=== PATIENT | female | born 1950 | race Caucasian/White ===

== ENCOUNTER 2023-01-24 13:58 | Inpatient (IN) ==
--- NOTE | 2023-01-24 15:39 | Electrocardiogram Report ---
Test Reason : Blood Pressure : / mmHG Vent. Rate : 080 BPM Atrial Rate : 080 BPM P-R Int : 178 ms QRS Dur : 072 ms QT Int : 374 ms P-R-T Axes : 057 006 018 degrees QTc Int : 431 ms Normal sinus rhythm Normal ECG No previous ECGs available Confirmed by Anastacio Lorenz ([id number]) on 01/24/2023 3:39:16 PM Referred By: Confirmed By:Anastacio Lorenz
--- NOTE | 2023-01-24 15:45 | XRay Report ---
XR chest 1V not portable HISTORY: 72 years-old Female Chest pain, nonspecific acute chest pain COMPARISON: None TECHNIQUE: PA view of the chest FINDINGS: Cardiomediastinal and hilar silhouettes are within normal limits. No pneumothorax, pleural effusion, airspace consolidation or pulmonary edema. Bones of the chest appear grossly intact. IMPRESSION: No acute process. ACT 112: Negative or not required by law. The above report was generated using voice recognition software. It may contain grammatical, syntax o r spelling errors. Electronically signed by: Titi Chowdhury M.D. 01/24/2023 3:44 PM
[2023-01-24 16:04] LABS: Basophils # (auto) 0.04 K/uL (0-0.2); Basophils % (auto) 0.7 %; Eosinophils # (auto) 0.14 K/uL (0-0.50); Eosinophils % (auto) 2.4 %; Hematocrit (blood only) 41.6 % (37.0-47.0); Hemoglobin 14.3 g/dl (12.0-16.0); Immature Granulocytes # (auto) 0.01 K/uL (0.01-0.20); Immature Granulocytes % (auto) 0.2 %; Lymphocytes # (auto) 1.62 K/uL (1.2-3.4); Lymphocytes % (auto) 27.6 %; Mean Corpuscular Hemoglobin 29.2 pg (25.0-34.0); Mean Corpuscular Hgb Conc 34.4 g/dL (32.0-36.0); Mean Corpuscular Volume 85.1 fL (80.0-100.0); Mean Platelet Volume 11.4 fL (9.4-12.4); Monocytes # (auto) 0.46 K/uL (0.11-0.59); Monocytes % (auto) 7.8 %; Neutrophils # (auto) 3.61 K/uL (1.40-6.50); Neutrophils % (auto) 61.3 %; Platelet Count 192 K/uL (130-400); RDW Coefficient of Variation 13.3 % (11.5-14.5); RDW Standard Deviation 41.1 fL (36.4-46.3); Red Blood Count 4.89 M/uL (4.20-5.40); White Blood Count 5.88 K/ul (4.8-10.8)
[2023-01-24 16:30] LABS: Albumin Globulin Ratio 1.5 (0.9-2); Albumin Level 4.4 gm/dl (3.4-5.0); BUN Creatinine Ratio 14.9 (10-20); Bilirubin,Total 0.5 mg/dl (0.2-1.0); Calcium 9.4 mg/dl (8.6-10.3); Est GFR (African American) 76.6 ml/min; Est GFR (Non-African American) 66.1 ml/min; Globulin 2.9 gm/dl (2.5-4.0); INR 0.9 (0.9-1.1); Partial Thromboplastin Time 28.5 Seconds (21.0-31.0); Potassium 3.8 mmol/L (3.5-5.1); Prothrombin Time 10.3 Seconds (9.0-12.0); Total Protein 7.3 gm/dl (6.0-8.3); Troponin I High Sensitivity 76.5 pg/ml (0-14)
--- NOTE | 2023-01-24 17:13 | History & Physical Report ---
Date of Service January 24, 2023 Assessment & Plan (1) Chest pain: Plan: This is a 72 y/o female who presents to the ED with progressive episodes of exertional chest pressure and dyspnea over the last two weeks. She has a history of dyslipidemia but has been unable to tolerate a statin. She is a former smoker and has a family history of heart disease. She denies prior history of HTN. Blood sugar in the ED was >300 - denies prior history of diabetes but also has a family history of DM. Clinical picture concerning for unstable angina vs. NSTEMI. Troponin in the ED was elevated. EKG without clear ST segment elevation but questionable ST-T changes - no prior EKG to compare to. Currently, chest pain has essentially resolved. - Admit to PCU - Trend troponin Q6hrs x 2 more draws - Start heparin gtt, aspirin, beta-dave for presumed unstable angina vs. N STEMI - NPO after midnight - Repeat EKG in AM and with any recurrent chest pain - Check ECHO - Lipid panel and A1c in AM - Consult cardiology (2) Family history of cardiovascular disease: (3) Elevated blood sugar: Plan: Pt denies prior diagnosis of diabetes but blood sugar in ED >300 - concerning for undiagnosed DM. Will check A1c and address from there. (4) Dyslipidemia: Plan: Lipid panel in AM - pt has been statin intolerant previously due to muscle aches Plan Pt seen and reviewed with collaborating physician, Dr. Malagon. Plan of care discussed and as outlined above Code Status: Full Code DVT Prophylaxis: Heparin gtt Edilberto Holman PA-C History of Present Illness Chief Complaint: Chest pain Primary Care Provider: Micah Tellez M.D. This is a 72 y/o female with a history of endometriosis s/p hysterectomy, elevated cholesterol but not on statin due to side effects, and frequent UTIs who presented to the ED with worsening chest discomfort. Pt reports 1-2 weeks of intermittent chest discomfort and heaviness, initially with exertion but now happening at rest. Pt reports that since she had COVID a year ago, she has had some issues with dyspnea on exertion (significant exertion like walking up the hill with something on [place]) but this has worsened over the last few weeks. About two weeks ago, she started to notice chest heaviness with these episodes. Sometimes they resolve quickly with rest while other times it takes several kendra joselito to resolve. Chest discomfort is across the entire mid-chest - describes as "like a concrete block is sitting on the area." Today, she was at work early and had an episode of discomfort without specific inciting event. The discomfort resolved with rest and deep breathing after about 20 minutes. After lunch, she developed recurrent discomfort but this time it did not resolve with usual measures or in usual time. After about an hour, she decided to come to the ED for evaluation. Pain is essentially resolved at present. She denies prior cardiac work-up. No known history of HTN. She was tried on propranolol for tremor but could not tolerate. She is supposed to be on rosuvastatin for cholesterol but has not been taking rosuvastatin b/c of side effects - bothers her legs. Has had high blood sugars in the past but does not recall being told that she was diabetic. Mother had a heart attack in her 70s but lived to her 90s. Allergies Allergy/AdvReac Type Severity Reaction Status Date / Time aspirin AdvReac Nausea Verified 01/24/23 16:38 Home Medications Medication Instructions Recorded Confirmed Type calcium carbonate 600 mg-vitamin 1 tab PO 4XWK 01/24/23 01/24/23 History D3 10 mcg (400 unit) tablet (Calcium 600 + D(3)) cranberry concentrate-ascorbic 1 cap PO DAILY 01/24/23 01/24/23 History acid 140 mg-100 mg capsule (Cranberry Urinary Comfort) magnesium oxide 400 mg PO DAILY 01/24/23 01/24/23 History turmeric root extract 500 mg tablet 500 mg PO DAILY 01/24/23 01/24/23 History Past Med/Surg History Medical History Broken arm Broken foot Endometriosis History of COVID-19 Tinnitus Surgical History History of hysterectomy 1986 for endometriosis History of tonsillectomy Family History Grandmother Diabetes Father Cancer smoker Brother Cancer agent orange exposure - unsure what type of cancer Brother Cancer smoker Mother Heart disease Social History Smoking Status: Former smoker Cigarettes Per Day: 1/2-1 PPD; Smoking End Date: quit 12-13 yrs ago; Hx Alcohol Use: Yes (occasional) Hx Substance Use: No Current Living Situation: Spouse Feels Safe at Home: Yes Sunscreen Use: Yes Review of Systems Review of Systems: All systems reviewed & are unremarkable except as noted in HPI & below Constitutional: no fever, no chills and no weight loss Eyes: no diplopia and no worsening vision Ear, Nose, Mouth, Throat: no nasal congestion, no nasal discharge and no sore throat Respiratory: no cough and no wheezing Cardiovascular: no palpitations, no syncope and no edema Gastrointestinal: no abdominal pain, no nausea, no vomiting, no diarrhea/loose stools and no blood in stools Genitourinary: no dysuria and no hematuria Musculoskeletal: no back pain and no neck pain Integumentary: no rash and no yellowing of the skin Neurologic: no generalized weakness, no dizziness and no headache(s) Psychiatric: no depression Physical Exam Constitutional: well developed and well nourished; no acute distress Eyes: + anicteric sclerae ENMT: external ear and nose normal, oropharynx normal Neck: trachea midline Respiratory: no respiratory distress and no labored breathing Auscultation: lungs clear to auscultation bilaterally; no rales, no rhonchi and no wheezes Cardiovascular: Rate/Rhythm: regular rate and regular rhythm Vessels: dorsalis pedis pulses present and radial pulses present; no carotid bruit Extremities: no pedal edema Gastrointestinal (Abdomen): Inspection/Auscultation: normal bowel sounds; abdomen not distended Percussion/Palpation: abdomen soft; abdomen nontender Musculoskeletal: Head/Neck/Chest: normocephalic, head atraumatic and neck supple Skin: no jaundice Neurologic: moves all extremities; no focal motor deficits and not confused Psychiatric: A+Ox3, euthymic affect Results & Data Results & Data Vital Signs (Past 12 Hours) Vital Signs Temp Pulse Resp BP Pulse Ox O2 Del Method O2 Flow Rate 01/24/23 16:30 66 17 94 Room Air 01/24/23 16:30 149/78 H 01/24/23 16:00 67 18 01/24/23 16:00 141/82 H 01/24/23 15:30 65 19 95 01/24/23 15:30 120/75 01/24/23 15:29 71 19 96 01/24/23 15:30 71 01/24/23 15:24 96 Room Air 01/24/23 15:24 96 Room Air 0 01/24/23 14:01 37.2 C 81 17 160/83 H 96 Room Air Laboratory Results Laboratory Results - last 24 hr 01/24/23 01/24/23 01/24/23 15:42 15:42 15:42 WBC 5.88 RBC 4.89 Hgb 14.3 Hct 41.6 MCV 85.1 MCH 29.2 MCHC 34.4 RDW Std Deviation 41.1 RDW Coeff of Huma 13.3 Plt Count 192 MPV 11.4 Immature Gran % (Auto) 0.2 Neut % (Auto) 61.3 Lymph % (Auto) 27.6 [place] % (Auto) 7.8 Eos % (Auto) 2.4 Baso % (Auto) 0.7 Neut # (Auto) 3.61 Lymph # (Auto) 1.62 [place] # (Auto) 0.46 Eos # (Auto) 0.14 Baso # (Auto) 0.04 Immature Gran # (Auto) 0.01 PT 10.3 INR 0.9 APTT 28.5 PTT Ratio 1.0 Sodium 134 L Potassium 3.8 Chloride 103 Carbon Dioxide 23 Anion Gap 8 BUN 13 Creatinine 0.87 Est Cr Clr Drug Dosing 61.0 Est GFR ( Amer) 76.6 Est GFR (Non-Af Amer) 66.1 BUN/Creatinine Ratio 14.9 Glucose 305 H* Calcium 9.4 Total Bilirubin 0.5 AST 40 H ALT 30 Alkaline Phosphatase 92 Troponin I High Sens 76.5 H* Total Protein 7.3 Albumin 4.4 Globulin 2.9 Albumin/Globulin Ratio 1.5 Diagnostic Findings Chest X-Ray 01/24/23 14:04 XR chest 1V not portable HISTORY: 72 years-old Female Chest pain, nonspecific acute chest pain COMPARISON: None TECHNIQUE: PA view of the chest FINDINGS: Cardiomediastinal and hilar silhouettes are within normal limits. No pneumothorax, pleural effusion, airspace consolidation or pulmonary edema. Bones of the chest appear grossly intact. IMPRESSION: No acute process. Supervising Physician Co-Signing Physician Notes Patient was seen and examined independently at bedside. Chart reviewed. Case discussed with Janay Holman PA-C and agree with the documentation above. In summary, this is a 72-year-old female who presents with chest pressure with exertion and is being admitted due to concerns for unstable angina vs NSTEMI. On exam, she is awake, alert, oriented, lying comfortably, chest clear, heart sounds normal, abdomen benign, neurologically intact, no leg edema. Patient high-sensitivity troponin elevated at 76, EKG with some ST-T wave changes but no prior EKG to compare. She denies any chest pain after presented to ED. However given her concerning history as detailed above, her family history, elevated Trop and EKG changes, agree with admission to PCU with aspirin, beta-blockers, heparin drip while monitoring serial troponin, telemetry, repeat EKG in a.m., echo cardiogram and cardio consultation. She is intolerant to statin. She will likely will need cardiac cath but will defer to cardiology. We will keep n.p.o. after midnight. Agree with checking A1c given elevated blood sugar of more than 300 in the ED. SSI prn. Rest as per the note above.
[2023-01-24] MEDS ORDERED: ASPIRIN CHEW 324 MG PO STA (19:19)
[2023-01-24] MEDS ORDERED: Heparin IV Adult Wt-Based Standard *NO* Bolus Protocol IV SCH (19:26)
[2023-01-24] MEDS ORDERED: METOPROLOL SUCC 25MG EXT REL TAB PO SCH (19:30)
[2023-01-24] MEDS ORDERED: HEPARIN SODIUM/DEXTROSE 25,000 UNITS/500 ML BAG IV SCH (20:00)
[2023-01-24] MEDS ORDERED: METOPROLOL TARTRATE 25 MG TAB PO STA (21:05)
[2023-01-24] MEDS ORDERED: ACETAMINOPHEN 325 MG TAB PO PRN (22:12)
[2023-01-24] MEDS ORDERED: NITROGLYCERIN SL 0.4 MG/TAB TAB SL PRN (22:12)
--- NOTE | 2023-01-24 23:20 | Emergency Department Note ---
History of Present Illness General Chief Complaint: Chest Pain Stated Complaint: CHEST PAIN, SOB, Time Seen by Provider: 01/24/23 16:05 History of Present Illness Provider Complaint: chest pain Onset (ago): week(s) Onset (Weeks): 2 Duration: intermittent and now resolved Onset: during rest Pain Location: substernal Pain Radiation: none Severity: moderate Quality: + tightness and + heaviness Relieved By: + nothing Exacerbated By: + other (stress) Context: no recent illness, no recent surgery, no recent immobilization, no recent travel, no trauma/injury, no new medications or no history of DVT/PE Associated symptoms: + dyspnea; no nausea, no vomiting, no syncope, no palpitations, no fever, no cough or no leg swelling Home Medications Medication Instructions Recorded Confirmed Type calcium carbonate 600 mg-vitamin 1 tab PO 4XWK 01/24/23 01/24/23 History D3 10 mcg (400 unit) tablet (Calcium 600 + D(3)) cranberry concentrate-ascorbic 1 cap PO DAILY 01/24/23 01/24/23 History acid 140 mg-100 mg capsule (Cranberry Urinary Comfort) magnesium oxide 400 mg PO DAILY 01/24/23 01/24/23 History turmeric root extract 500 mg tablet 500 mg PO DAILY 01/24/23 01/24/23 History Allergies Allergy/AdvReac Type Severity Reaction Status Date / Time aspirin AdvReac Nausea Verified 01/24/23 16:38 Past Med/Surg History Medical History Broken arm Broken foot Endometriosis History of COVID-19 Tinnitus Surgical History History of hysterectomy 1986 for endometriosis History of tonsillectomy Family History Grandmother Diabetes Father Cancer smoker Brother Cancer agent orange exposure - unsure what type of cancer Brother Cancer smoker Mother Heart disease Social History Smoking Status: Former smoker Cigarettes Per Day: 1/2-1 PPD; Smoking End Date: quit 12-13 yrs ago; Hx Alcohol Use: Yes (occasional) Hx Substance Use: No Current Living Situation: Spouse Feels Safe at Home: Yes Sunscreen Use: Yes Physical Exam Vital Signs Vital Signs - 24 hr 01/24/23 14:01 01/24/23 15:24 01/24/23 15:24 Temperature 37.2 C Temperature Source Temporal Artery Scan Pulse Rate 81 Pulse Rate from SpO2 Sensor Respiratory Rate 17 Respiratory Effort / Characteristics Non-Labored Spontaneous Respiratory Depth Normal Respiratory Pattern Regular Blood Pressure 160/83 H Blood Pressure Mean 108 Pulse Oximetry 96 96 96 Oxygen Delivery Method Room Air Room Air Room Air Oxygen Flow Rate 0 Sepsis Recent Fever Within 48 Hours No Sepsis New/Unexplained Change in Mental Status N/A Sepsis Action Taken by Nursing No Action Required Oxygen Flow Rate - Titration 0 01/24/23 15:30 01/24/23 15:29 01/24/23 15:30 Temperature Temperature Source Pulse Rate 71 71 Pulse Rate from SpO2 Sensor 70 Respiratory Rate 19 Respiratory Effort / Characteristics Respiratory Depth Respiratory Pattern Blood Pressure 120/75 Blood Pressure Mean 89 Pulse Oximetry 96 Oxygen Delivery Method Oxygen Flow Rate Sepsis Recent Fever Within 48 Hours Sepsis New/Unexplained Change in Mental Status Sepsis Action Taken by Nursing Oxygen Flow Rate - Titration 01/24/23 15:30 01/24/23 16:00 01/24/23 16:00 Temperature Temperature Source Pulse Rate 65 67 Pulse Rate from SpO2 Sensor 64 65 Respiratory Rate 19 18 Respiratory Effort / Characteristics Respiratory Depth Respiratory Pattern Blood Pressure 141/82 H Blood Pressure Mean 98 Pulse Oximetry 95 Oxygen Delivery Method Oxygen Flow Rate Sepsis Recent Fever Within 48 Hours Sepsis New/Unexplained Change in Mental Status Sepsis Action Taken by Nursing Oxygen Flow Rate - Titration 01/24/23 16:30 01/24/23 16:30 01/24/23 17:00 Temperature Temperature Source Pulse Rate 66 Pulse Rate from SpO2 Sensor 66 Respiratory Rate 17 Respiratory Effort / Characteristics Respiratory Depth Respiratory Pattern Blood Pressure 149/78 H 164/86 H Blood Pressure Mean 109 120 Pulse Oximetry 94 Oxygen Delivery Method Room Air Oxygen Flow Rate Sepsis Recent Fever Within 48 Hours Sepsis New/Unexplained Change in Mental Status Sepsis Action Taken by Nursing Oxygen Flow Rate - Titration 01/24/23 17:00 Temperature Temperature Source Pulse Rate 67 Pulse Rate from SpO2 Sensor 65 Respiratory Rate 15 Respiratory Effort / Characteristics Respiratory Depth Respiratory Pattern Blood Pressure Blood Pressure Mean Pulse Oximetry 98 Oxygen Delivery Method Oxygen Flow Rate Sepsis Recent Fever Within 48 Hours Sepsis New/Unexplained Change in Mental Status Sepsis Action Taken by Nursing Oxygen Flow Rate - Titration Physical Exam GENERAL: oriented to person, place, and time. appears well-developed and well- nourished. HENT: Exam performed. - Head: Normocephalic and atraumatic. EYES: Conjunctivae and EOM are normal. Right eye exhibits no discharge. Left eye exhibits no discharge. No scleral icterus. NECK: Normal range of motion. Neck supple. No JVD present. CV: Normal rate, regular rhythm, normal heart sounds and intact distal pulses. There is no peripheral edema. Palpable radial pulses bue. PULM/CHEST: Effort normal and breath sounds normal. No respiratory distress. No stridor. no wheezes. no rales. ABD: The abdomen is soft. There is no tenderness. NEURO: Motor and sensation grossly intact. SKIN: Skin is warm and dry. He is not diaphoretic. PSYCH: normal mood and affect. Behavior is normal. Judgment and thought content normal. Course Course 1605: The patient was evaluated in room B4. A complete history and physical exam was performed Administered Medications Heparin Sodium/Dextrose (Heparin Sodium/Dextrose) 25,000 units in 500 mls @ 24 mls/hr IV .[id number] [facility]; Protocol Stop: 02/23/23 19:59 Last Admin: 01/24/23 20:29 Dose: 1,200 units/hr, 24 mls/hr Documented By: DEBBIE Co-signed By: QGV Discontinued Medications Aspirin (Aspirin Chew 324 Mg) 324 mg PO NOW STA Stop: 01/24/23 19:20 Last Admin: 01/24/23 20:29 Dose: Not Given Documented By: DEBBIE Metoprolol Succinate (Metoprolol Succ 25mg Ext Rel Tab) 25 mg PO QAM [facility] Stop: 02/23/23 19:29 Last Admin: 01/24/23 21:09 Dose: Not Given Documented By: TIFFANY Metoprolol Tartrate (Metoprolol Tartrate 25 Mg Tab) 25 mg PO ONE STA Stop: 01/24/23 21:06 Last Admin: 01/24/23 22:17 Dose: Not Given Documented By: TIFFANY Medical Decision Making Laboratory Data Attestation: I reviewed the patient's lab results. 01/24/23 15:42 01/24/23 15:42 Labs: Lab Results 01/24/23 01/24/23 01/24/23 Range/Units 15:42 15:42 15:42 WBC 5.88 (4.8-10.8) K/ul RBC 4.89 (4.20-5.40) M/uL Hgb 14.3 (12.0-16.0) g/dl Hct 41.6 (37.0-47.0) % MCV 85.1 (80.0-100.0) fL MCH 29.2 (25.0-34.0) pg MCHC 34.4 (32.0-36.0) g/dL RDW Std Deviation 41.1 (36.4-46.3) fL RDW Coeff of Huma 13.3 (11.5-14.5) % Plt Count 192 (130-400) K/uL MPV 11.4 (9.4-12.4) fL Immature Gran % (Auto) 0.2 % Neut % (Auto) 61.3 % Lymph % (Auto) 27.6 % [place] % (Auto) 7.8 % Eos % (Auto) 2.4 % Baso % (Auto) 0.7 % Neut # (Auto) 3.61 (1.40-6.50) K/uL Lymph # (Auto) 1.62 (1.2-3.4) K/uL [place] # (Auto) 0.46 (0.11-0.59) K/uL Eos # (Auto) 0.14 (0-0.50) K/uL Baso # (Auto) 0.04 (0-0.2) K/uL Immature Gran # (Auto) 0.01 (0.01-0.20) K/uL PT 10.3 (9.0-12.0) Seconds INR 0.9 (0.9-1.1) APTT 28.5 (21.0-31.0) Seconds PTT Ratio 1.0 Sodium 134 L (136-145) mmol/L Potassium 3.8 (3.5-5.1) mmol/L Chloride 103 (98-107) mmol/L Carbon Dioxide 23 (21-32) mmol/L Anion Gap 8 (3-11) BUN 13 (6-23) mg/dl Creatinine 0.87 (0.6-1.2) mg/dl Est Cr Clr Drug Dosing 61.0 ml/min Est GFR ( Amer) 76.6 ml/min Est GFR (Non-Af Amer) 66.1 ml/min BUN/Creatinine Ratio 14.9 (10-20) Glucose 305 H* (70-99(Fasting)) mg/dl Calcium 9.4 (8.6-10.3) mg/dl Total Bilirubin 0.5 (0.2-1.0) mg/dl AST 40 H (13-39) U/L ALT 30 (7-52) U/L Alkaline Phosphatase 92 (34-104) U/L Troponin I High Sens 76.5 H* (0-14) pg/ml Total Protein 7.3 (6.0-8.3) gm/dl Albumin 4.4 (3.4-5.0) gm/dl Globulin 2.9 (2.5-4.0) gm/dl Albumin/Globulin Ratio 1.5 (0.9-2) Imaging Data Chest x-ray: Attestation: I personally reviewed and interpreted this imaging study as follows: My impression: Chest x-ray negative. Airway clear. No pneumothorax. No consolidation. No cardiomegaly or cephalization.. No free air under the diaphragm. No fractures of the skeletal structures. Radiologist's impression: Chest X-Ray 01/24/23 14:04 XR chest 1V not portable HISTORY: 72 years-old Female Chest pain, nonspecific acute chest pain COMPARISON: None TECHNIQUE: PA view of the chest FINDINGS: Cardiomediastinal and hilar silhouettes are within normal limits. No pneumothorax, pleural effusion, airspace consolidation or pulmonary edema. Bones of the chest appear grossly intact. IMPRESSION: No acute process. ACT 112: Negative or not required by law. The above report was generated using voice recognition software. It may contain grammatical, syntax or spelling errors. Electronically signed by: Titi Chowdhury M.D. 01/24/2023 3:44 PM ECG Data Attestation: I personally reviewed and interpreted this ECG as follows: Indication: chest pain Rate (beats per minute): 80 Rhythm: normal sinus Findings: no ST depression, no ST elevation or no prolonged QT MDM Narrative Cardiac monitoring: An order was placed for continuous cardiac monitoring. The monitor shows a rate of 80 with sinus rhythm interpreted by me Patient was seen during a time of extreme volume and extreme acuity in the emergency department. Nursing triage protocols were initiated and labs were drawn by protocol in the triage area. Patient's high-sensitivity troponin is elevated. Patient reporting no chest pain in the emergency department. [facility] out ACS. Impression & Plan Chest pain, Elevated troponin Discharge Plan Visit Data Chief Complaint: Chest Pain Stated Complaint: CHEST PAIN, SOB, ED Provider: Joao Tyler Discharge Problem: Chest pain, Elevated troponin Patient Disposition: Admitted As Inpatient Discharge Instructions Interventions: ED Discharge Assessment Last Done: 01/24/23 22:12
[2023-01-24] MEDS: METOPROLOL TARTRATE 25 MG TAB PO SCH (23:36)
[2023-01-25 02:38] LABS: Basophils # (auto) 0.05 K/uL (0-0.2); Basophils % (auto) 0.7 %; Eosinophils # (auto) 0.17 K/uL (0-0.50); Eosinophils % (auto) 2.3 %; Hematocrit (blood only) 41.4 % (37.0-47.0); Hemoglobin 14.1 g/dl (12.0-16.0); Immature Granulocytes # (auto) 0.03 K/uL (0.01-0.20); Immature Granulocytes % (auto) 0.4 %; Lymphocytes # (auto) 2.07 K/uL (1.2-3.4); Lymphocytes % (auto) 27.9 %; Mean Corpuscular Hemoglobin 29.1 pg (25.0-34.0); Mean Corpuscular Hgb Conc 34.1 g/dL (32.0-36.0); Mean Corpuscular Volume 85.4 fL (80.0-100.0); Mean Platelet Volume 11.1 fL (9.4-12.4); Monocytes # (auto) 0.51 K/uL (0.11-0.59); Monocytes % (auto) 6.9 %; Neutrophils # (auto) 4.58 K/uL (1.40-6.50); Neutrophils % (auto) 61.8 %; Platelet Count 184 K/uL (130-400); RDW Coefficient of Variation 13.3 % (11.5-14.5); RDW Standard Deviation 41.6 fL (36.4-46.3); Red Blood Count 4.85 M/uL (4.20-5.40); White Blood Count 7.41 K/ul (4.8-10.8)
[2023-01-25 02:55] LABS: Albumin Globulin Ratio 1.5 (0.9-2); Albumin Level 4.1 gm/dl (3.4-5.0); BUN Creatinine Ratio 12.6 (10-20); Bilirubin,Total 0.7 mg/dl (0.2-1.0); Chol HDL Ratio 5.4 (0-5); Est GFR (African American) 76.6 ml/min; Est GFR (Non-African American) 66.1 ml/min; Globulin 2.7 gm/dl (2.5-4.0); Potassium 3.7 mmol/L (3.5-5.1); Total Protein 6.8 gm/dl (6.0-8.3)
[2023-01-25 03:29] LABS: Partial Thromboplastin Ratio 1.9
[2023-01-25 03:30] LABS: Partial Thromboplastin Time 52.2 Seconds (21.0-31.0)
[2023-01-25 07:59] LABS: Estimated Average Glucose 226 mg/dl; Hemoglobin A1C 9.5 % (4.5-5.6)
--- NOTE | 2023-01-25 08:48 | Electrocardiogram Report ---
Test Reason : Blood Pressure : / mmHG Vent. Rate : 064 BPM Atrial Rate : 064 BPM P-R Int : 198 ms QRS Dur : 078 ms QT Int : 444 ms P-R-T Axes : 070 013 003 degrees QTc Int : 458 ms Normal sinus rhythm Low voltage QRS Borderline ECG When compared with ECG of 24-JAN-2023 14:07, No significant change was found Confirmed by Anastacio Lorenz ([id number]) on 01/25/2023 8:47:36 AM Referred By: REFERRED SELF Confirmed By:Anastacio Lorenz
[2023-01-25] MEDS ORDERED: METOPROLOL TARTRATE 25 MG TAB PO SCH (09:00)
[2023-01-25] MEDS ORDERED: CRANBERRY ASCORBIC ACID PO SCH (09:00)
--- NOTE | 2023-01-25 09:17 | Hospitalist Progress Note ---
Date of Service January 25, 2023 Assessment & Plan (1) Chest pain: Plan: NSTEMI This is a 72 y/o female who presents to the ED with progressive episodes of exertional chest pressure and dyspnea over the last two weeks. She has a history of dyslipidemia but has been unable to tolerate a statin. She is a former smoker and has a family history of heart disease. She denies prior history of HTN. Blood sugar in the ED was >300 - denies prior history of diabetes but also has a family history of DM. Clinical picture concerning for unstable angina vs. NSTEMI. Troponin in the ED was elevated. EKG without clear ST segment elevation but questionable ST-T changes - no prior EKG to compare to. Currently, chest pain has essentially resolved. - PCU - Trended troponin 76 -> 116 -> 96 - Started heparin gtt on admission Pt does not tolerate ASA Cardiology consulted Echo obtained - Mild concentric LVH. No regional motion abnormality noted. LV systolic function is normal. LVEF 50 to 60%. RV is normal in size and function. Aortic valve sclerosis mild, without significant aortic valvular stenosis. Doppler findings do not suggest pulmonary hypertension. Grade 1 diastolic dysfunction. - currently NPO - Discussed w/ cardiology - plan for cardiac cath - Lipid panel and A1c obtained - LDL 105 - cont. statin A1c - 9.5% (2) Family history of cardiovascular disease: (3) Elevated blood sugar: Plan: Pt denies prior diagnosis of diabetes but blood sugar in ED >300 - concerning for undiagnosed DM. Current A1c 9.5% - c/w diabetes hospital educator consulted - appreciate their recs -pt will need to check her blood sugar at home -plan to likely discharge on metformin -pt will need to follow up closely with her outpt provider (4) Dyslipidemia: Plan: Lipid panel obtained- pt has been statin intolerant previously due to muscle aches - currently on statin, will cont. Plan Code Status: Full Code DVT Prophylaxis: Heparin gtt Admission and Anticipated Discharge Date Admission Date: January 24, 2023 Subjective Pt seen in follow up of chest pain Currently laying in bed in NAD. Currently feels well but describes having chest pressure on and off, more persistent yesterday at work while sitting at the desk. Patient currently treated for NSTEMI, IV heparin was initiated on admission Currently also denies any shortness of breath or dizziness. Denies abdominal pain nausea or vomiting. Discussed with cardiology, plan for cardiac cath Review of Systems Review of Systems: All systems reviewed & are unremarkable except as noted in Subjective Physical Exam Physical Exam: Constitutional:L well developed and well nourished; n o acute distress Eyes: + anicteric sclera e ENMT: external ear and n ose normal, oropha rynx normal Neck: supple Respiratory: no respiratory dis tress and no labor ed breathing Ausc ultation: lungs cl ear to auscultatio n bilaterally; no rales, no rhonchi and no wheezes Cardiovascular:L Rate/Rhythm: regul ar rate and regula r rhythm Extremit ies: no pedal osmany a Gastrointestinal ( Abdomen): Inspection/Auscult ation: normal isis l sounds; abdomen not distended Pe rcussion/Palpation : abdomen soft; ab domen nontender Musculoskeletal: Head/Neck/Chest: n ormocephalic, head atraumatic and ne ck supple Skin: warm, dry Neurologic: moves all extremit ies; no focal cj r deficits and not confused Psychiatric: A+Ox3, euthymic af fect Results & Data Results & Data Vital Signs (Past 12 Hours) Vital Signs Temp Pulse Pulse Resp BP BP Pulse Ox 01/25/23 07:19 36.3 C L 67 18 127/74 95 01/25/23 03:18 36.5 C 66 16 99/64 L 96 01/25/23 01:55 82 01/25/23 00:18 36.8 C 93 H 16 118/66 94 01/24/23 22:12 36.8 C 93 H 16 118/66 94 01/24/23 23:00 67 15 123/68 94 01/24/23 22:30 68 15 128/73 94 01/24/23 22:00 68 18 117/72 92 01/24/23 23:00 01/24/23 21:30 67 17 122/80 92 01/24/23 21:21 67 20 118/76 94 01/24/23 21:22 66 15 118/76 97 O2 Del Method 01/25/23 07:19 Room Air 01/25/23 03:18 Room Air 01/25/23 01:55 01/25/23 00:18 Room Air 01/24/23 22:12 Room Air 01/24/23 23:00 01/24/23 22:30 01/24/23 22:00 01/24/23 23:00 Room Air 01/24/23 21:30 01/24/23 21:21 01/24/23 21:22 Room Air Laboratory Results 01/25/23 01/25/23 01/25/23 Range/Units 07:14 04:23 02:21 WBC (4.8-10.8) K/ul RBC (4.20-5.40) M/uL Hgb (12.0-16.0) g/dl Hct (37.0-47.0) % MCV (80.0-100.0) fL MCH (25.0-34.0) pg MCHC (32.0-36.0) g/dL RDW Std Deviation (36.4-46.3) fL RDW Coeff of Huma (11.5-14.5) % Plt Count (130-400) K/uL MPV (9.4-12.4) fL Immature Gran % (Auto) % Neut % (Auto) % Lymph % (Auto) % [place] % (Auto) % Eos % (Auto) % Baso % (Auto) % Neut # (Auto) (1.40-6.50) K/uL Lymph # (Auto) (1.2-3.4) K/uL [place] # (Auto) (0.11-0.59) K/uL Eos # (Auto) (0-0.50) K/uL Baso # (Auto) (0-0.2) K/uL Immature Gran # (Auto) (0.01-0.20) K/uL PT (9.0-12.0) Seconds INR (0.9-1.1) APTT (21.0-31.0) Seconds PTT Ratio Sodium (136-145) mmol/L Potassium (3.5-5.1) mmol/L Chloride (98-107) mmol/L Carbon Dioxide (21-32) mmol/L Anion Gap (3-11) BUN (6-23) mg/dl Creatinine (0.6-1.2) mg/dl Est Cr Clr Drug Dosing ml/min Est GFR ( Amer) ml/min Est GFR (Non-Af Amer) ml/min BUN/Creatinine Ratio (10-20) Glucose (70-99(Fasting)) mg/dl POC Glucose 209 H (70-99) mg/dl Estimat Average Glucose 226 mg/dl Hemoglobin A1c 9.5 H (4.5-5.6) % Calcium (8.6-10.3) mg/dl Total Bilirubin (0.2-1.0) mg/dl AST (13-39) U/L ALT (7-52) U/L Alkaline Phosphatase (34-104) U/L Troponin I High Sens 96.2 H* D (0-14) pg/ml Total Protein (6.0-8.3) gm/dl Albumin (3.4-5.0) gm/dl Globulin (2.5-4.0) gm/dl Albumin/Globulin Ratio (0.9-2) Triglycerides (0-150) mg/dl Cholesterol (0-200) mg/dl LDL Cholesterol, Calc mg/dl VLDL Cholesterol, Calc (0-30) mg/dl HDL Cholesterol mg/dl Cholesterol/HDL Ratio (0-5) SARS-CoV-2, RNA, NAAT (NEGATIVE) 01/25/23 01/25/23 01/25/23 Range/Units 02:21 02:21 02:21 WBC 7.41 (4.8-10.8) K/ul RBC 4.85 (4.20-5.40) M/uL Hgb 14.1 (12.0-16.0) g/dl Hct 41.4 (37.0-47.0) % MCV 85.4 (80.0-100.0) fL MCH 29.1 (25.0-34.0) pg MCHC 34.1 (32.0-36.0) g/dL RDW Std Deviation 41.6 (36.4-46.3) fL RDW Coeff of Huma 13.3 (11.5-14.5) % Plt Count 184 (130-400) K/uL MPV 11.1 (9.4-12.4) fL Immature Gran % (Auto) 0.4 % Neut % (Auto) 61.8 % Lymph % (Auto) 27.9 % Canadian % (Auto) 6.9 % Eos % (Auto) 2.3 % Baso % (Auto) 0.7 % Neut # (Auto) 4.58 (1.40-6.50) K/uL Lymph # (Auto) 2.07 (1.2-3.4) K/uL [place] # (Auto) 0.51 (0.11-0.59) K/uL Eos # (Auto) 0.17 (0-0.50) K/uL Baso # (Auto) 0.05 (0-0.2) K/uL Immature Gran # (Auto) 0.03 (0.01-0.20) K/uL PT (9.0-12.0) Seconds INR (0.9-1.1) APTT 52.2 H* (21.0-31.0) Seconds PTT Ratio 1.9 Sodium 136 (136-145) mmol/L Potassium 3.7 (3.5-5.1) mmol/L Chloride 105 (98-107) mmol/L Carbon Dioxide 24 (21-32) mmol/L Anion Gap 7 (3-11) BUN 11 (6-23) mg/dl Creatinine 0.87 (0.6-1.2) mg/dl Est Cr Clr Drug Dosing 61.0 ml/min Est GFR ( Amer) 76.6 ml/min Est GFR (Non-Af Amer) 66.1 ml/min BUN/Creatinine Ratio 12.6 (10-20) Glucose 192 H (70-99(Fasting)) mg/dl POC Glucose (70-99) mg/dl Estimat Average Glucose mg/dl Hemoglobin A1c (4.5-5.6) % Calcium 9.0 (8.6-10.3) mg/dl Total Bilirubin 0.7 (0.2-1.0) mg/dl AST 41 H (13-39) U/L ALT 30 (7-52) U/L Alkaline Phosphatase 73 (34-104) U/L Troponin I High Sens (0-14) pg/ml Total Protein 6.8 (6.0-8.3) gm/dl Albumin 4.1 (3.4-5.0) gm/dl Globulin 2.7 (2.5-4.0) gm/dl Albumin/Globulin Ratio 1.5 (0.9-2) Triglycerides 285 H (0-150) mg/dl Cholesterol 199 (0-200) mg/dl LDL Cholesterol, Calc 105 mg/dl VLDL Cholesterol, Calc 57 H (0-30) mg/dl HDL Cholesterol 37 mg/dl Cholesterol/HDL Ratio 5.4 H (0-5) SARS-CoV-2, RNA, NAAT (NEGATIVE) 01/25/23 01/24/23 01/24/23 Range/Units 00:13 22:42 18:55 WBC (4.8-10.8) K/ul RBC (4.20-5.40) M/uL Hgb (12.0-16.0) g/dl Hct (37.0-47.0) % MCV (80.0-100.0) fL MCH (25.0-34.0) pg MCHC (32.0-36.0) g/dL RDW Std Deviation (36.4-46.3) fL RDW Coeff of Huma (11.5-14.5) % Plt Count (130-400) K/uL MPV (9.4-12.4) fL Immature Gran % (Auto) % Neut % (Auto) % Lymph % (Auto) % Canadian % (Auto) % Eos % (Auto) % Baso % (Auto) % Neut # (Auto) (1.40-6.50) K/uL Lymph # (Auto) (1.2-3.4) K/uL [place] # (Auto) (0.11-0.59) K/uL Eos # (Auto) (0-0.50) K/uL Baso # (Auto) (0-0.2) K/uL Immature Gran # (Auto) (0.01-0.20) K/uL PT (9.0-12.0) Seconds INR (0.9-1.1) APTT (21.0-31.0) Seconds PTT Ratio Sodium (136-145) mmol/L Potassium (3.5-5.1) mmol/L Chloride (98-107) mmol/L Carbon Dioxide (21-32) mmol/L Anion Gap (3-11) BUN (6-23) mg/dl Creatinine (0.6-1.2) mg/dl Est Cr Clr Drug Dosing ml/min Est GFR ( Amer) ml/min Est GFR (Non-Af Amer) ml/min BUN/Creatinine Ratio (10-20) Glucose (70-99(Fasting)) mg/dl POC Glucose 171 H (70-99) mg/dl Estimat Average Glucose mg/dl Hemoglobin A1c (4.5-5.6) % Calcium (8.6-10.3) mg/dl Total Bilirubin (0.2-1.0) mg/dl AST (13-39) U/L ALT (7-52) U/L Alkaline Phosphatase (34-104) U/L Troponin I High Sens 116.5 H* D (0-14) pg/ml Total Protein (6.0-8.3) gm/dl Albumin (3.4-5.0) gm/dl Globulin (2.5-4.0) gm/dl Albumin/Globulin Ratio (0.9-2) Triglycerides (0-150) mg/dl Cholesterol (0-200) mg/dl LDL Cholesterol, Calc mg/dl VLDL Cholesterol, Calc (0-30) mg/dl HDL Cholesterol mg/dl Cholesterol/HDL Ratio (0-5) SARS-CoV-2, RNA, NAAT NEGATIVE (NEGATIVE) 01/24/23 01/24/23 01/24/23 Range/Units 15:42 15:42 15:42 WBC 5.88 (4.8-10.8) K/ul RBC 4.89 (4.20-5.40) M/uL Hgb 14.3 (12.0-16.0) g/dl Hct 41.6 (37.0-47.0) % MCV 85.1 (80.0-100.0) fL MCH 29.2 (25.0-34.0) pg MCHC 34.4 (32.0-36.0) g/dL RDW Std Deviation 41.1 (36.4-46.3) fL RDW Coeff of Huma 13.3 (11.5-14.5) % Plt Count 192 (130-400) K/uL MPV 11.4 (9.4-12.4) fL Immature Gran % (Auto) 0.2 % Neut % (Auto) 61.3 % Lymph % (Auto) 27.6 % Canadian % (Auto) 7.8 % Eos % (Auto) 2.4 % Baso % (Auto) 0.7 % Neut # (Auto) 3.61 (1.40-6.50) K/uL Lymph # (Auto) 1.62 (1.2-3.4) K/uL Canadian # (Auto) 0.46 (0.11-0.59) K/uL Eos # (Auto) 0.14 (0-0.50) K/uL Baso # (Auto) 0.04 (0-0.2) K/uL Immature Gran # (Auto) 0.01 (0.01-0.20) K/uL PT 10.3 (9.0-12.0) Seconds INR 0.9 (0.9-1.1) APTT 28.5 (21.0-31.0) Seconds PTT Ratio 1.0 Sodium 134 L (136-145) mmol/L Potassium 3.8 (3.5-5.1) mmol/L Chloride 103 (98-107) mmol/L Carbon Dioxide 23 (21-32) mmol/L Anion Gap 8 (3-11) BUN 13 (6-23) mg/dl Creatinine 0.87 (0.6-1.2) mg/dl Est Cr Clr Drug Dosing 61.0 ml/min Est GFR ( Amer) 76.6 ml/min Est GFR (Non-Af Amer) 66.1 ml/min BUN/Creatinine Ratio 14.9 (10-20) Glucose 305 H* (70-99(Fasting)) mg/dl POC Glucose (70-99) mg/dl Estimat Average Glucose mg/dl Hemoglobin A1c (4.5-5.6) % Calcium 9.4 (8.6-10.3) mg/dl Total Bilirubin 0.5 (0.2-1.0) mg/dl AST 40 H (13-39) U/L ALT 30 (7-52) U/L Alkaline Phosphatase 92 (34-104) U/L Troponin I High Sens 76.5 H* (0-14) pg/ml Total Protein 7.3 (6.0-8.3) gm/dl Albumin 4.4 (3.4-5.0) gm/dl Globulin 2.9 (2.5-4.0) gm/dl Albumin/Globulin Ratio 1.5 (0.9-2) Triglycerides (0-150) mg/dl Cholesterol (0-200) mg/dl LDL Cholesterol, Calc mg/dl VLDL Cholesterol, Calc (0-30) mg/dl HDL Cholesterol mg/dl Cholesterol/HDL Ratio (0-5) SARS-CoV-2, RNA, NAAT (NEGATIVE) Medications Administered Current Inpatient Medications Acetaminophen (Acetaminophen 325 Mg Tab) 650 mg PO Q4H PRN PRN Reason: Pain or Fever Stop: 02/23/23 22:11 Heparin Sodium/Dextrose (Heparin Sodium/Dextrose) 25,000 units in 500 mls @ 24 mls/hr IV .[id number] MOSHE; Protocol Stop: 02/23/23 19:59 Last Titration: 01/25/23 07:16 Dose: 1,200 units/hr, 24 mls/hr Metoprolol Tartrate (Metoprolol Tartrate 25 Mg Tab) 12.5 mg PO BID MOSHE Stop: 02/23/23 22:29 Last Admin: 01/24/23 23:36 Dose: 12.5 mg Nitroglycerin (Nitroglycerin Sl 0.4 Mg/Tab Tab) 0.4 mg SL Q5M PRN PRN Reason: Chest Pain Stop: 02/23/23 22:11
[2023-01-25] MEDS ORDERED: ASPIRIN 81 MG CHEW PO ONE (09:46)
[2023-01-25] MEDS ORDERED: CLOPIDOGREL BISULFATE 300 MG TAB PO STA (09:53)
[2023-01-25] MEDS: METOPROLOL TARTRATE 25 MG TAB PO SCH ×2 (10:02→20:04)
--- NOTE | 2023-01-25 10:14 | Cardiology Consultation ---
Date of Consultation January 25, 2023 Assessment & Plan (1) NSTEMI (non-ST elevated myocardial infarction): EKG performed on arrival yesterday and again this morning revealed sinus rhythm without repolarization changes. Echocardiogram reveals normal wall motion, no regional wall motion abnormalities. High-sensitivity troponin mildly elevated with measurements of 96, 116, and then 76 respectively. Patient describes family history of coronary heart disease with her mother having had a myocardial infarction in her late 60s or early 70s. She simply at the age of 89. At present, I recommend proceeding with definitive coronary angiography. Patient agreeable however she does have an aspirin intolerance as noted below. Proceed with metoprolol, unfractioned heparin, and atorvastatin with mildly elevated LDL of 105 mg/dL. (2) Aspirin intolerance: Patient with longstanding GI intolerance to aspirin. Case reviewed with Dr Evans of interventional cardiology. Will plan on utilizing Brilinta monotherapy if PCI is found to be indicated. Will plan on providing loading dose if necessary after diagnostic angiogramp completed , before PCI. History of Present Illness Attending Physician: Juan Carlos Beckett MD History of Present Illness Leigha Charles is a 72 year old female seen in cardiology consultation per the request of Edilberto Holman PA-C for the evaluation of chest pain and elevation in troponin level. She has no past history of cardiovascular disease.Over the last 2 weeks she has had at least 6 episodes of chest pressure that have occurred at rest as well as with physical exertion. Yesterday she was sitting at her desk. She states that she is not under any new or undue stress and she felt severe midline substernal chest pressure that persisted for about half an hour prompting her to ask a coworker for assistance. The coworker drove her to the hospital. She states her symptoms had resolved on arrival. She feels well now. Allergies Allergy/AdvReac Type Severity Reaction Status Date / Time aspirin AdvReac Nausea Verified 01/24/23 16:38 Home Medications Medication Instructions Recorded Confirmed Type calcium carbonate 600 mg-vitamin 1 tab PO [id number] 01/24/23 01/24/23 History D3 10 mcg (400 unit) tablet (Calcium 600 + D(3)) cranberry concentrate-ascorbic 1 cap PO DAILY 01/24/23 01/24/23 History acid 140 mg-100 mg capsule (Cranberry Urinary Comfort) magnesium oxide 400 mg PO DAILY 01/24/23 01/24/23 History turmeric root extract 500 mg tablet 500 mg PO DAILY 01/24/23 01/24/23 History Patient History Medical History Broken arm Broken foot Endometriosis History of COVID-19 Tinnitus Surgical History History of hysterectomy 1986 for endometriosis History of tonsillectomy Family History Grandmother Diabetes Father Cancer smoker Brother Cancer agent orange exposure - unsure what type of cancer Brother Cancer smoker Mother Heart disease Social History Smoking Status: Former smoker Cigarettes Per Day: 1/2-1 PPD; Smoking End Date: quit 12-13 yrs ago; Do You Dip or Chew Tobacco: No; Hx Alcohol Use: No Hx Substance Use: No Preferred Language: Yemeni Communication Ability: Effective Elevated Work Platform Operator Required: No Beliefs That Will Affect Care: None Current Living Situation: Spouse Other Information That Helps Us Care for You: No Feels Safe at Home: Yes Safety Concerns: Feels Safe At This Time Sunscreen Use: Yes Assistive Devices: None Review of Systems Review of Systems: All systems reviewed & are unremarkable except as noted in HPI & below Physical Exam Constitutional: WD/WN, vitals as above Eyes: PERRL, conjunctivae normal, anicteric sclerae Respiratory: normal respiratory effort, lungs clear to auscultation Cardiovascular: RRR, no murmur, no edema Gastrointestinal (Abdomen): normal bowel sounds, soft, nontender, no hepatosplenomegaly Neurologic: PERRL, EOMI, accommodation nl, no face palsy, no dysarthria Results & Data Vital Signs (Past 12 Hours) Vital Signs Temp Pulse Pulse Resp BP BP Pulse Ox 01/25/23 08:00 62 01/25/23 07:19 36.3 C L 67 18 127/74 95 01/25/23 03:18 36.5 C 66 16 99/64 L 96 01/25/23 01:55 82 01/25/23 00:18 36.8 C 93 H 16 118/66 94 01/24/23 22:12 36.8 C 93 H 16 118/66 94 01/24/23 23:00 67 15 123/68 94 01/24/23 22:30 68 15 128/73 94 01/24/23 22:00 68 18 117/72 92 01/24/23 23:00 O2 Del Method 01/25/23 08:00 01/25/23 07:19 Room Air 01/25/23 03:18 Room Air 01/25/23 01:55 01/25/23 00:18 Room Air 01/24/23 22:12 Room Air 01/24/23 23:00 01/24/23 22:30 01/24/23 22:00 01/24/23 23:00 Room Air Laboratory Results Cardiac Enzymes 01/24/23 01/24/23 01/25/23 Range/Units 15:42 22:42 02:21 AST 40 H 41 H (13-39) U/L Troponin I High Sens 76.5 H* 116.5 H* D (0-14) pg/ml 01/25/23 Range/Units 04:23 AST (13-39) U/L Troponin I High Sens 96.2 H* D (0-14) pg/ml Coagulation 01/24/23 01/25/23 Range/Units 15:42 02:21 PT 10.3 (9.0-12.0) Seconds APTT 28.5 52.2 H* (21.0-31.0) Seconds Lipids 01/25/23 Range/Units 02:21 Triglycerides 285 H (0-150) mg/dl Cholesterol 199 (0-200) mg/dl HDL Cholesterol 37 mg/dl Cholesterol/HDL Ratio 5.4 H (0-5) LDL 105 CBC 01/24/23 01/25/23 Range/Units 15:42 02:21 WBC 5.88 7.41 (4.8-10.8) K/ul RBC 4.89 4.85 (4.20-5.40) M/uL Hgb 14.3 14.1 (12.0-16.0) g/dl Hct 41.6 41.4 (37.0-47.0) % Plt Count 192 184 (130-400) K/uL Neut # (Auto) 3.61 4.58 (1.40-6.50) K/uL Lymph # (Auto) 1.62 2.07 (1.2-3.4) K/uL [place] # (Auto) 0.46 0.51 (0.11-0.59) K/uL Eos # (Auto) 0.14 0.17 (0-0.50) K/uL Baso # (Auto) 0.04 0.05 (0-0.2) K/uL Comprehensive Metabolic Panel 01/24/23 01/25/23 Range/Units 15:42 02:21 Sodium 134 L 136 (136-145) mmol/L Potassium 3.8 3.7 (3.5-5.1) mmol/L Chloride 103 105 (98-107) mmol/L Carbon Dioxide 23 24 (21-32) mmol/L BUN 13 11 (6-23) mg/dl Creatinine 0.87 0.87 (0.6-1.2) mg/dl Glucose 305 H* 192 H (70-99(Fasting)) mg/dl Calcium 9.4 9.0 (8.6-10.3) mg/dl AST 40 H 41 H (13-39) U/L ALT 30 30 (7-52) U/L Alkaline Phosphatase 92 73 (34-104) U/L Total Protein 7.3 6.8 (6.0-8.3) gm/dl Albumin 4.4 4.1 (3.4-5.0) gm/dl
[2023-01-25] MEDS: ATORVASTATIN 40 MG TAB PO SCH (10:41)
[2023-01-25] MEDS ORDERED: niCARdipine HCL INJ 2.5 MG/ML 10 ML AMP ONE (11:52)
[2023-01-25] MEDS ORDERED: HEPARIN (PORCINE) 1000 UNIT/ML 10 ML (CATH LAB USE ONLY) ONE (11:52)
[2023-01-25] MEDS ORDERED: MIDAZOLAM HCL 1 MG/ML 2ML VIAL ONE (11:52)
[2023-01-25] MEDS ORDERED: fentaNYL citrate PF 100 MCG/2 ML VIAL ONE (11:53)
[2023-01-25] MEDS ORDERED: NITROGLYCERIN/D5W 100MCG/ML 20ML SYR ONE (11:54)
--- NOTE | 2023-01-25 13:27 | Pre Anesthesia Assessment ---
Date of Service January 25, 2023 Pre Sedation Assessment Vital Signs Temp Pulse Pulse Resp BP BP Pulse Ox 01/25/23 12:59 70 14 138/75 96 01/25/23 11:46 36.8 C 60 18 111/73 93 01/25/23 08:00 62 01/25/23 07:19 36.3 C L 67 18 127/74 95 01/25/23 03:18 36.5 C 66 16 99/64 L 96 01/25/23 01:55 82 01/25/23 00:18 36.8 C 93 H 16 118/66 94 01/24/23 22:12 36.8 C 93 H 16 118/66 94 01/24/23 23:00 67 15 123/68 94 01/24/23 22:30 68 15 128/73 94 01/24/23 22:00 68 18 117/72 92 01/24/23 23:00 01/24/23 21:30 67 17 122/80 92 01/24/23 21:21 67 20 118/76 94 01/24/23 21:00 77 16 94 01/24/23 20:30 69 17 96 01/24/23 20:07 71 21 167/91 H 95 01/24/23 20:00 68 14 01/24/23 21:22 66 15 118/76 97 01/24/23 19:26 70 01/24/23 19:01 71 23 154/87 H 95 01/24/23 19:00 73 21 134/84 94 01/24/23 18:54 68 19 01/24/23 18:30 69 13 01/24/23 18:00 66 14 01/24/23 17:32 71 19 97 01/24/23 17:32 179/76 H 01/24/23 17:30 76 20 01/24/23 17:00 67 15 98 01/24/23 17:00 164/86 H 01/24/23 16:30 66 17 94 01/24/23 16:30 149/78 H 01/24/23 16:00 67 18 01/24/23 16:00 141/82 H 01/24/23 15:30 65 19 95 01/24/23 15:30 120/75 01/24/23 15:29 71 19 96 01/24/23 15:30 71 01/24/23 15:24 96 01/24/23 15:24 96 01/24/23 14:01 37.2 C 81 17 160/83 H 96 O2 Del Method O2 Flow Rate 01/25/23 12:59 Room Air 01/25/23 11:46 Room Air 01/25/23 08:00 01/25/23 07:19 Room Air 01/25/23 03:18 Room Air 01/25/23 01:55 01/25/23 00:18 Room Air 01/24/23 22:12 Room Air 01/24/23 23:00 01/24/23 22:30 01/24/23 22:00 01/24/23 23:00 Room Air 01/24/23 21:30 01/24/23 21:21 01/24/23 21:00 01/24/23 20:30 01/24/23 20:07 01/24/23 20:00 01/24/23 21:22 Room Air 01/24/23 19:26 01/24/23 19:01 01/24/23 19:00 01/24/23 18:54 01/24/23 18:30 01/24/23 18:00 01/24/23 17:32 Room Air 01/24/23 17:32 01/24/23 17:30 01/24/23 17:00 01/24/23 17:00 01/24/23 16:30 Room Air 01/24/23 16:30 01/24/23 16:00 01/24/23 16:00 01/24/23 15:30 01/24/23 15:30 01/24/23 15:29 01/24/23 15:30 01/24/23 15:24 Room Air 01/24/23 15:24 Room Air 0 01/24/23 14:01 Room Air Cardiovascular RRR, no murmur, no edema Respiratory normal respiratory effort, lungs clear to auscultation Pre-Sedation Airway Assessment Smoking Status: Former smoker Hx Sleep Apnea: No Short, Thick Neck: No Thyromental Distance: > or= 3.5 Finger Breadths Oral Cavity: + WNL Mallampati Class: III ASA: ASA3 NPO Status Date of Last Intake of Fluids: 01/24/23 Time of Last Intake of Fluids: 12:00 Date of Last Intake of Solid Food: 01/24/23 Time of Last Intake of Solid Foods: 12:00 Notes The planned sedation has been discussed with the patient. Informed Consent was obtained. I have identified the patient, determined the appropriateness of sedation and have assessed the patient immediately prior to the procedure. All medicine(s) and interventions are by my order. [facility] [place] Procedure Codes (Charges) Indication for Procedure Indication for procedure: NSTEMI
[2023-01-25] MEDS ORDERED: LIDOCAINE 1% LOCAL 20 ML VIAL ONE (13:34)
[2023-01-25] MEDS ORDERED: TICAGRELOR 90 MG TAB ONE (14:30)
--- NOTE | 2023-01-25 14:45 | Post Anesthesia Assessment ---
Date of Service January 25, 2023 Post Sedation Assessment Vital Signs Temp Pulse Pulse Resp BP BP Pulse Ox 01/25/23 14:30 64 16 117/71 92 01/25/23 12:59 70 14 138/75 96 01/25/23 11:46 36.8 C 60 18 111/73 93 01/25/23 08:00 62 01/25/23 07:19 36.3 C L 67 18 127/74 95 01/25/23 03:18 36.5 C 66 16 99/64 L 96 01/25/23 01:55 82 01/25/23 00:18 36.8 C 93 H 16 118/66 94 01/24/23 22:12 36.8 C 93 H 16 118/66 94 01/24/23 23:00 67 15 123/68 94 01/24/23 22:30 68 15 128/73 94 01/24/23 22:00 68 18 117/72 92 01/24/23 23:00 01/24/23 21:30 67 17 122/80 92 01/24/23 21:21 67 20 118/76 94 01/24/23 21:00 77 16 94 01/24/23 20:30 69 17 96 01/24/23 20:07 71 21 167/91 H 95 01/24/23 20:00 68 14 01/24/23 21:22 66 15 118/76 97 01/24/23 19:26 70 01/24/23 19:01 71 23 154/87 H 95 01/24/23 19:00 73 21 134/84 94 01/24/23 18:54 68 19 01/24/23 18:30 69 13 01/24/23 18:00 66 14 01/24/23 17:32 71 19 97 01/24/23 17:32 179/76 H 01/24/23 17:30 76 20 01/24/23 17:00 67 15 98 01/24/23 17:00 164/86 H 01/24/23 16:30 66 17 94 01/24/23 16:30 149/78 H 01/24/23 16:00 67 18 01/24/23 16:00 141/82 H 01/24/23 15:30 65 19 95 01/24/23 15:30 120/75 01/24/23 15:29 71 19 96 01/24/23 15:30 71 01/24/23 15:24 96 01/24/23 15:24 96 O2 Del Method O2 Flow Rate 01/25/23 14:30 Room Air 01/25/23 12:59 Room Air 01/25/23 11:46 Room Air 01/25/23 08:00 01/25/23 07:19 Room Air 01/25/23 03:18 Room Air 01/25/23 01:55 01/25/23 00:18 Room Air 01/24/23 22:12 Room Air 01/24/23 23:00 01/24/23 22:30 01/24/23 22:00 01/24/23 23:00 Room Air 01/24/23 21:30 01/24/23 21:21 01/24/23 21:00 01/24/23 20:30 01/24/23 20:07 01/24/23 20:00 01/24/23 21:22 Room Air 01/24/23 19:26 01/24/23 19:01 01/24/23 19:00 01/24/23 18:54 01/24/23 18:30 01/24/23 18:00 01/24/23 17:32 Room Air 01/24/23 17:32 01/24/23 17:30 01/24/23 17:00 01/24/23 17:00 01/24/23 16:30 Room Air 01/24/23 16:30 01/24/23 16:00 01/24/23 16:00 01/24/23 15:30 01/24/23 15:30 01/24/23 15:29 01/24/23 15:30 01/24/23 15:24 Room Air 01/24/23 15:24 Room Air 0 Recovery Score Activity: Moves 4 extremities Respiration: Deep Breath/Cough Circulation: +/-20% PreAnes Value Consciousness: Fully Awake Oxygen Saturation: > 92% On Room Air Post Anesthesia Score: 10 Discharge Sedation Level of Care: Fast Track Phase II Post Sedation Plan On clinical assessment, the patient appears to have tolerated the sedation without complications. Patient is recovering as anticipated. Patient will continue to be monitored by nursing and may be discharged when sedation discharge criteria are met per below protocol. Upon Completions of procedure up to 15 minutes continue every 5 minute vital signs and the P.A.R. score; then discharge to a Phase I or Fast Track to Phase II per the following guidelines: * Discharge Patient to appropriate Phase II area if PAR is 8 or greater or return to pre- procedure baseline. The post - procedure orders will be as directed. * If PAR score is less than 8 or not return to pre-procedure baseline then patient will follow Phase I monitoring till PAR is reached for Phase II. The Phase I may be done in procedure room or may call to secure a Phase I area. * If naloxone or flumazenil are used for reversal, hold in Phase I for continued monitoring from when last reversal dose was given for a minimum of 60 minutes or longer pending the nurse and/or physician discretion of patient condition before discharge to Phase II. Please call the Sedation Physician to re-evaluate and complete post-note for discharge to Phase II area. Do NOT discharge from procedure sedation or Phase 1 until post- sedation evaluation note is complete by procedure /sedation MD Sedation Discharge Instructions to be given to the patient at discharge to home. [facility] [place] Codes (Charges) Indication for Procedure Indication for procedure: NSTEMI Sedation/Anesthesia Procedure 1: Sedation/Anesthesia: 17566 Mod Sedation by the same physician;Init15 Min Child Age 5 & Up (Initial 15-minute, start time 1346) Total Sedation Time (minutes): 28 Procedure 2: Sedation/Anesthesia: 84772 Mod Sedation by the same physician; Ea [id number] Minutes (Additional 13-minute, end time 1414) Total Sedation Time (minutes): 28
--- NOTE | 2023-01-25 14:58 | Cardiac Catheterization ---
[facility] Data: Space Physicist Cardiac Status Clinical evaluation leading to the procedure CAD Presenation: Non STEMI Anginal Classification: CCS IV Heart Failure: No Cardiogenic Shock within 24 Hours: No Cardiac Arrest within 24 Hours: No Imaging Studies Past 6 Months: No Stress Studies Past 6 Months: No Coronary Anatomy Dominant: Right Left Main (% Stenosis): Normal LAD (% Stenosis): Normal D1 (% Stenosis): Normal Circumflex (% Stenosis): Normal OM1 (% Stenosis): Normal OM2 (% Stenosis): Normal OM3 (% Stenosis): Normal RCA (% Stenosis): Proximal (Normal then 99% with thrombus into the early mid segment.) R PDA (% Stenosis): Normal (Very distal branch occluded fills via left to right collaterals) R PL1 (% Stenosis): Normal Diagnostic Physicians Name: Jcarlos Evans MD, PhD Closure Device Percutaneous Entry Location: Radial Closure Device: Radial Band Recommendations: Medical Therapy and/or Counseling and PCI without planned CABG PCI Indication: PCI for high risk Non-RUBEN Lesion Segment Name: Proximal to mid RCA Culprit Artery: Yes Stenosis Prior to Rx (%): 99% Chronic Total Occlusion: No Pre-Procedure JEY Flow: 2 Previously Treated Lesion: No Lesion Complexity: Non-High/Non-C Lesion Length (mm): 12 Thrombus Present: Yes Bifurcation Lesion: No Guidewire Across Lesion: Yes Intraprocedure Events Significant Disection: No Perforation: No Cardiac Cath Procedure Full Procedure Date January 25, 2023 Pre-Procedure Diagnosis Pre-Procedure Diagnosis: Non STEMI AUC Score AUC Score: 07 Post-Procedure Diagnosis Post-Procedure Diagnosis: Severe CAD Procedure(s) Performed Procedure(s) Performed: Coronary Angiography and Drug Eluting Stent Business Law Instructor Jcarlos Evans MD, PhD Estimated Blood Loss Estimated Blood Loss: 5 mL Medication(s) Medication(s): Fentanyl, Heparin, Lidocaine 1%, Nicardipine, Nitroglycerin and Versed Summary of Findings Brief description: Patient was brought to the cardiac catheterization suite where she was shaved and prepped in a sterile fashion. She was sedated using IV Versed and fentanyl. Soft tissues of the right wrist were anesthetized using 1 mL of 1% Xylocaine. The right radial artery was accessed with a modified Seldinger technique and a 6 [place] radial artery glide sheath was placed. Patient was provided anticoagulation with IV heparin and antispasmodics including nicardipine and nitroglycerin. All catheters were advanced and exchanged over a 0.035 J-tip wire. Left coronary angiography in orthogonal views with a 5 [place] Horseheads 4 diagnostic catheter. Right coronary angiography in orthogonal views with a 5 [place] Horseheads 4 diagnostic catheter. Diagnostic catheters were removed. We next proceeded with PCI of the RCA. ACT was checked intermittently and additional heparin was provided as needed to maintain therapeutic anticoagulation. A 6 [place] JR4 guide catheter was used to engage the right coronary. A BMW universal guidewire was advanced across the lesion in the RCA and positioned distally Lesion was predilated using a 2.5 x 12 mm trek balloon up to 14 genaro. A 3.5 x 18 mm Mj stent was advanced across the lesion and deployed at 18 genaro. The proximal and mid stent were postdilated using a 4.0 x 8 mm noncompliant balloon inflated to 22 genaro and 18 genaro respectively. Stock Shipper angiography performed. Guidewire and guide catheter were removed. Radial artery sheath was removed. Hemostasis was obtained using the TR band. Patient was hemodynamically stable and asymptomatic. She was returned to the recovery area after receiving 180 mg of p.o. Brilinta. This ended the case. Coronary angiography findings: [id number]-[id number] vessel bifurcating into LAD and circumflex. No angiographically evident disease. [id number]-hladkvk and reaches the apex. Provides several large septal branches and its efforts diagonal is large and branching. It also provides several smaller diagonals as it approaches the apex. The diagonal 1 and mid to distal LAD are tortuous. There is no more than mild luminal irregularities in the LAD and its branches. LCx-large caliber and nondominant. Travels in the AV groove where it gives a very small caliber high arising OM1 followed by a small atrial branch. Then there is a medium caliber OM 2 and a medium to large caliber OM 3. The AV groove vessel becomes small at this point and terminates distally. RCA-this is very large caliber and dominant. Proximal segment is initially without disease and then as it transitions into the mid segment there is an eccentric 99% stenosis with evidence of thrombus. JEY II flow beyond this. The mid and distal RCA have mild luminal irregularities and the vessel bifurcates into a large PDA and a very large multi branching posterolateral. These vessels have no angiographically evident disease. One small branch of the PDA is occluded and is seen to fill via kraj-hh-tgavh collaterals. PCI of RCA: 0% residual stenosis post PCI No evidence of dissection or perforation post PCI JEY-3 flow post PCI Summary: 1. Severe RCA stenosis is culprit for non-ST elevation [place] 2. Successful PCI with implantation of a large caliber drug-eluting stent in the RCA 3. Patient has aspirin intolerance and refuses to take aspirin. Therefore, she will be on Brilinta 90 mg p.o. twice daily as a sole antiplatelet agent. She could also be considered for Xarelto 2.5 mg daily as an adjuvant agent because it has indication for ASCVD/AR. 4. Initiate guideline directed medical therapy for secondary prevention of coronary disease to include; high intensity statin therapy, beta-dave, plus or minus ASHLY inhibitor/ARB. The agents and doses will be determined by her primary technical assistance consultant as will decision regarding Xarelto use. Hemodynamics Rest Ao:: 92/63 mmHg Final Ao: 125/64 mmHg LV: Not performed Recommendations Recommendations: Medical Therapy and/or Counseling and PCI without planned CABG Radiation Exposure (mGy) 1061 mGy, fluoroscopy time 7.4 minutes Contrast (mls) 115 mL Anesthesia 2 mg IV Versed, 50 mcg IV fentanyl (start time 1346, end time 1414) Procedural Complication(s) None Disposition Recovery Room\PACU I attest to the content of the Intraoperative Record and any orders documented therein. Any exceptions are noted below. [facility] Card Cath Procedure Codes Cardiac Catheterization Procedure 1: Cardiovascular Cath Procedures: 37721 Coronaries Moderate Sedation Procedure 1: Sedation/Anesthesia: 82932 Mod Sedation by the same physician;Init15 Min Child Age 5 & Up (Initial 15 minutes, start time 1346) Procedure 2: Sedation/Anesthesia: 95619 Mod Sedation by the same physician; Ea [id number] Minutes (Additional 13 min, end time 1414) Stenting Procedure 1: Cardiovascular Stent Procedures: 81394 Perc transluminal revascularization of acute sub/total occl, aMI (RCA) PG Care Time/CCT Total # of Minutes Spent Total Time Spent with Patient: Total time spent is greater than 50% in coordination of care (as documented) at patient's floor/unit and/or counseling patient:
[2023-01-25] MEDS ORDERED: GLUCAGON FOR INJ 1 MG VIAL IM PRN (15:00)
[2023-01-25] MEDS ORDERED: CARBOHYDRATES FOR HYPOGLYCEMIA PO PRN (15:00)
[2023-01-25] MEDS ORDERED: GLUCOSE 40% GEL 15 GM TUBE PO PRN (15:00)
[2023-01-25] MEDS ORDERED: GLUCOSE 10 TAB/TUBE PO PRN (15:00)
[2023-01-25] MEDS ORDERED: DEXTROSE 50% 50 ML SYRINGE IV PRN (15:00)
[2023-01-25] MEDS ORDERED: ACETAMINOPHEN 500 MG TAB PO ONE (15:06)
[2023-01-25] MEDS ORDERED: Nursing to Pharmacy Communication SCH (15:15)
--- NOTE | 2023-01-25 16:36 | Electrocardiogram Report ---
Test Reason : Blood Pressure : / mmHG Vent. Rate : 062 BPM Atrial Rate : 062 BPM P-R Int : 200 ms QRS Dur : 072 ms QT Int : 434 ms P-R-T Axes : 063 010 -08 degrees QTc Int : 440 ms Normal sinus rhythm Low voltage QRS Nonspecific T wave abnormality Inferior leads Abnormal ECG When compared with ECG of 25-JAN-2023 04:48, No significant change was found Confirmed by Anastacio Lorenz ([id number]) on 01/25/2023 4:35:52 PM Referred By: REFERRED SELF Confirmed By:Anastacio Lorenz
[2023-01-25] MEDS: INSULIN ASPART PER UNIT CHARGE SC SCH ×2 (16:37→20:12)
[2023-01-25] MEDS ORDERED: INSULIN ASPART PER UNIT CHARGE SC SCH (18:00)
[2023-01-26] MEDS: TICAGRELOR 90 MG TAB PO SCH ×2 (04:04→08:08)
[2023-01-26 06:56] LABS: Basophils # (auto) 0.06 K/uL (0-0.2); Basophils % (auto) 0.8 %; Eosinophils # (auto) 0.14 K/uL (0-0.50); Eosinophils % (auto) 1.9 %; Hematocrit (blood only) 41.1 % (37.0-47.0); Hemoglobin 13.8 g/dl (12.0-16.0); Immature Granulocytes # (auto) 0.04 K/uL (0.01-0.20); Immature Granulocytes % (auto) 0.5 %; Lymphocytes # (auto) 1.46 K/uL (1.2-3.4); Lymphocytes % (auto) 19.4 %; Mean Corpuscular Hemoglobin 28.9 pg (25.0-34.0); Mean Corpuscular Hgb Conc 33.6 g/dL (32.0-36.0); Monocytes # (auto) 0.52 K/uL (0.11-0.59); Monocytes % (auto) 6.9 %; Neutrophils # (auto) 5.29 K/uL (1.40-6.50); Neutrophils % (auto) 70.5 %; Platelet Count 194 K/uL (130-400); RDW Coefficient of Variation 13.5 % (11.5-14.5); RDW Standard Deviation 42.4 fL (36.4-46.3); Red Blood Count 4.78 M/uL (4.20-5.40); White Blood Count 7.51 K/ul (4.8-10.8)
[2023-01-26 07:19] LABS: BUN Creatinine Ratio 14.5 (10-20); Calcium 9.2 mg/dl (8.6-10.3); Creatinine Clr Calc Pharmacy 63.9 ml/min; Est GFR (African American) 81.1 ml/min; Phosphorus 3.1 mg/dl (2.5-4.9); Potassium 3.8 mmol/L (3.5-5.1)
[2023-01-26] MEDS: ATORVASTATIN 40 MG TAB PO SCH (08:02)
[2023-01-26] MEDS: METOPROLOL TARTRATE 25 MG TAB PO SCH (08:03)
[2023-01-26] MEDS: INSULIN ASPART PER UNIT CHARGE SC SCH ×2 (08:03→12:28)
[2023-01-26] MEDS ORDERED: ASPIRIN 81 MG ECTAB PO SCH (09:00)
[2023-01-26] MEDS ORDERED: traMADol HCL 50 MG TABLET PO STA (10:36)
--- NOTE | 2023-01-26 11:06 | Electrocardiogram Report ---
Test Reason : Blood Pressure : / mmHG Vent. Rate : 062 BPM Atrial Rate : 062 BPM P-R Int : 196 ms QRS Dur : 082 ms QT Int : 426 ms P-R-T Axes : 070 006 -24 degrees QTc Int : 432 ms Normal sinus rhythm Nonspecific T wave abnormality Inferior leads Abnormal ECG When compared with ECG of 25-JAN-2023 14:39, Nonspecific T wave abnormality no longer evident in Anterior leads Confirmed by Anastacio Lorenz ([id number]) on 01/26/2023 11:06:51 AM Referred By: REFERRED SELF Confirmed By:Anastacio Lorenz
--- NOTE | 2023-01-26 12:11 | Hospitalist Progress Note ---
Date of Service January 26, 2023 Assessment & Plan (1) Chest pain: Plan: NSTEMI This is a 72 y/o female who presents to the ED with progressive episodes of exertional chest pressure and dyspnea over the last two weeks. She has a history of dyslipidemia but has been unable to tolerate a statin. She is a former smoker and has a family history of heart disease. She denies prior history of HTN. Blood sugar in the ED was >300 - denies prior history of diabetes but also has a family history of DM. Clinical picture concerning for unstable angina vs. NSTEMI. Troponin in the ED was elevated. EKG without clear ST segment elevation but questionable ST-T changes - no prior EKG to compare to. Currently, chest pain has essentially resolved. - PCU - Trended troponin 76 -> 116 -> 96 - Started heparin gtt on admission Pt does not tolerate ASA Cardiology consulted Echo obtained - Mild concentric LVH. No regional motion abnormality noted. LV systolic function is normal. LVEF 50 to 60%. RV is normal in size and function. Aortic valve sclerosis mild, without significant aortic valvular stenosis. Doppler findings do not suggest pulmonary hypertension. Grade 1 diastolic dysfunction. 01/25 s/p Cardiac Cath: 1. Severe RCA stenosis is culprit for non-ST elevation [place] 2. Successful PCI with implantation of a large caliber drug-eluting stent in the RCA 3. Patient has aspirin intolerance and refuses to take aspirin. Therefore, she will be on Brilinta 90 mg p.o. twice daily as a sole antiplatelet agent. She could also be considered for Xarelto 2.5 mg daily as an adjuvant agent because it has indication for ASCVD/[place]. 4. Initiate guideline directed medical therapy for secondary prevention of coronary disease to include; high intensity statin therapy, beta-dave, plus or minus ASHLY inhibitor/ARB. The agents and doses will be determined by her primary motorcycle tester as will decision regarding Xarelto use. 01/[address] head ordered for persistent headache DM 2, New Diagnosis will start Metformin 500mg daily Radio Interference Supervisor consulted, instructions given to patient - Lipid panel and A1c obtained - LDL 105 - cont. statin A1c - 9.5% (2) Family history of cardiovascular disease: (3) Elevated blood sugar: Plan: Pt denies prior diagnosis of diabetes but blood sugar in ED >300 - concerning for undiagnosed DM. Current A1c 9.5% - c/w diabetes development educator consulted - appreciate their recs -pt will need to check her blood sugar at home -plan to likely discharge on metformin -pt will need to follow up closely with her outpt provider (4) Dyslipidemia: Plan: Lipid panel obtained- pt has been statin intolerant previously due to muscle aches - currently on statin, will cont. Plan Code Status: Full Code DVT Prophylaxis: Heparin gtt Admission and Anticipated Discharge Date Admission Date: January 24, 2023 Subjective ff up for NSTEMI, etc seen resting in bed, comfortable having persistent occipital headache- reminiscent of her migraine no nausea, BOV no chest pain, dyspnea, palpitations, dizziness no other symptoms Review of Systems Review of Systems: all noted and negative except for above Physical Exam Physical Exam: General- oriented x 3, not in distress, speaks in sentences with no effort or accessory muscle use Eyes- anicteric Neck- no JVD Lungs- clear breath sounds bilaterally, no rales/wheezes Heart- normal rate, regular rhythm; no murmurs Abdomen- normal bowel sounds, nondistended, soft, nontender Extremities- no pretibial edema, no calf tenderness Neuro- alert, oriented x 3; no gross focal neurologic deficits Skin- warm & dry Results & Data Results & Data Vital Signs (Past 12 Hours) Vital Signs Temp Pulse Pulse Resp BP Pulse Ox O2 Del Method 01/26/23 11:27 36.5 C 60 17 112/70 94 Room Air 01/26/23 07:40 65 01/26/23 07:17 36.6 C 66 18 104/65 92 Room Air 01/26/23 04:06 36.3 C L 71 18 97/58 L 91 Room Air all noted and reviewed including below
--- NOTE | 2023-01-26 12:12 | CT Scan Report ---
CT head/brain wo con CLINICAL HISTORY: 72 years-old Female with persistent headache, r/o bleed. Acute headache TECHNIQUE: Multiple axial CT images of the head were obtained without contrast. A dose lowering tech nique was utilized adhering to the principles of ALARA. CT DOSE: 547.75 mGy.cm COMPARISON: None. FINDINGS: No acute intracranial hemorrhage, midline shift, intracranial mass, hydrocephalus, territorial ischem ia or abnormal extra-axial collection. Involutional changes with chronic microvascular ischemic disea se. The calvarium is intact. The paranasal sinuses, mastoid air cells, and middle ear cavities are clear . IMPRESSION: No acute process. ACT 112: Negative or not required by law. The above report was generated using voice recognition software. It may contain grammatical, syntax o r spelling errors. Electronically signed by: Titi Chowdhury M.D. 01/26/2023 12:09 PM
--- NOTE | 2023-01-26 12:37 | Cardiology Progress Note ---
Date of Service January 26, 2023 Assessment & Plan (1) NSTEMI (non-ST elevated myocardial infarction): Plan: Patient found to have culprit thrombotic 90% proximal RCA stenosis without significant coronary artery disease elsewhere. Underwent PCI and implantation of a 3.5 x 18 mm [place] drug-eluting stent with excellent angiographic results. She has not had any recurrent angina. EKG reveals sinus rhythm at 60 bpm with development of T wave inversions in the inferior leads III and aVF consistent with expected evolution of her inferior SD and intervention, and unchanged compared to her postcatheterization EKG performed yesterday. CT of the brain had been performed due to concern of headache, without any acute process and is reassuring. Stable for discharge from a cardiac perspective on Brilinta 90 mg twice daily, metoprolol succinate 25 mg daily, atorvastatin 40 mg daily. 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 Outpatient cardiology follow-up within the next 4 to 6 weeks. Cardiac rehab. (2) Aspirin intolerance: Plan: Patient with longstanding GI intolerance to aspirin. Due to these concerns aspirin treatment has been avoided. Consider discharge on famotidine 10 or 20 mg daily for GI prophylaxis. Patient counseled with regards to the importance of not missing any doses of Brilinta. Anticipate need for treatment at a dose of 90 mg p.o. twice daily on a chronic basis as she is not a candidate for aspirin therapy. Future considerations include reducing her dose to 60 mg twice daily after 1 year or transitioning her to clopidogrel after 1 year. Admission and Anticipated Discharge Date Admission Date: January 24, 2023 Subjective Patient seen in cardiology follow-up. Notes feeling well with the exception of a headache that waxed and waned yesterday and came back again today. Denies chest discomfort. Telemetry reveals sinus rhythm in the 50s to 60s. Physical Exam Constitutional: WD/WN, vitals as above Eyes: PERRL, conjunctivae normal, anicteric sclerae Respiratory: normal respiratory effort, lungs clear to auscultation Cardiovascular: RRR, no murmur, no edema Gastrointestinal (Abdomen): normal bowel sounds, soft, nontender, no hepatosplenomegaly Neurologic: PERRL, EOMI, accommodation nl, no face palsy, no dysarthria Results & Data Vital Signs (Past 12 Hours) Vital Signs Temp Pulse Pulse Resp BP Pulse Ox O2 Del Method 01/26/23 11:27 36.5 C 60 17 112/70 94 Room Air 01/26/23 07:40 65 01/26/23 07:17 36.6 C 66 18 104/65 92 Room Air 01/26/23 04:06 36.3 C L 71 18 97/58 L 91 Room Air Laboratory Results CBC 01/26/23 Range/Units 05:57 WBC 7.51 (4.8-10.8) K/ul RBC 4.78 (4.20-5.40) M/uL Hgb 13.8 (12.0-16.0) g/dl Hct 41.1 (37.0-47.0) % Plt Count 194 (130-400) K/uL Neut # (Auto) 5.29 (1.40-6.50) K/uL Lymph # (Auto) 1.46 (1.2-3.4) K/uL [place] # (Auto) 0.52 (0.11-0.59) K/uL Eos # (Auto) 0.14 (0-0.50) K/uL Baso # (Auto) 0.06 (0-0.2) K/uL Comprehensive Metabolic Panel 01/26/23 Range/Units 05:57 Sodium 137 (136-145) mmol/L Potassium 3.8 (3.5-5.1) mmol/L Chloride 106 (98-107) mmol/L Carbon Dioxide 25 (21-32) mmol/L BUN 12 (6-23) mg/dl Creatinine 0.83 (0.6-1.2) mg/dl Glucose 169 H (70-99(Fasting)) mg/dl Calcium 9.2 (8.6-10.3) mg/dl
[2023-01-26] MEDS ORDERED: FAMOTIDINE 10 MG TABLET PO SCH (12:45)
--- NOTE | 2023-01-26 18:42 | Discharge Summary ---
Discharge Summary Date of Service January 26, 2023 Notes For Next Care Provider Medication Changes From Visit Brilinta- for prevention of heart attack Metoprolol succinate-for blood pressure and heart rate control Lipitor -for cholesterol lowering Metformin-for diabetes, to be started on January 28, 2023 Admission HPI Per Admitting Provider This is a 72 y/o female with a history of endometriosis s/p hysterectomy, elevated cholesterol but not on statin due to side effects, and frequent UTIs who presented to the ED with worsening chest discomfort. Pt reports 1-2 weeks of intermittent chest discomfort and heaviness, initially with exertion but now happening at rest. Pt reports that since she had COVID a year ago, she has had some issues with dyspnea on exertion (significant exertion like walking up the hill with something on [place]) but this has worsened over the last few weeks. About two weeks ago, she started to notice chest heaviness with these episodes. Sometimes they resolve quickly with rest while other times it takes several minutes to resolve. Chest discomfort is across the entire mid-chest - describes as "like a concrete block is sitting on the area." Today, she was at work early and had an episode of discomfort without specific inciting event. The discomfort resolved with rest and deep breathing after about 20 minutes. After lunch, she developed recurrent discomfort but this time it did not resolve with usual measures or in usual time. After about an hour, she decided to come to the ED for evaluation. Pain is essentially resolved at present. She denies prior cardiac work-up. No known history of HTN. She was tried on propranolol for tremor but could not tolerate. She is supposed to be on rosuvastatin for cholesterol but has not been taking rosuvastatin b/c of side effects - bothers her legs. Has had high blood sugars in the past but does not recall being told that she was diabetic. Mother had a heart attack in her 70s but lived to her 90s. Admission Exam Per Admitting Provider Constitutional: well developed and well nourished; no acute distress Eyes: + anicteric sclerae ENMT: external ear and nose normal, oropharynx normal Neck: trachea midline Respiratory: no respiratory distress and no labored breathing Auscultation: lungs clear to auscultation bilaterally; no rales, no rhonchi and no wheezes Cardiovascular: Rate/Rhythm: regular rate and regular rhythm Vessels: dorsalis pedis pulses present and radial pulses present; no carotid bruit Extremities: no pedal edema Gastrointestinal (Abdomen): Inspection/Auscultation: normal bowel sounds; abdomen not distended Percussion/Palpation: abdomen soft; abdomen nontender Musculoskeletal: Head/Neck/Chest: normocephalic, head atraumatic and neck supple Skin: no jaundice Neurologic: moves all extremities; no focal motor deficits and not confused Psychiatric: A+Ox3, euthymic affect Principal Dx & Hospital Course #1 = Principal Diagnosis (1) Chest pain: NSTEMI This is a 72 y/o female who presents to the ED with progressive episodes of exertional chest pressure and dyspnea over the last two weeks. She has a history of dyslipidemia but has been unable to tolerate a statin. She is a former smoker and has a family history of heart disease. She denies prior history of HTN. Blood sugar in the ED was >300 - denies prior history of diabetes but also has a family history of DM. Clinical picture concerning for unstable angina vs. NSTEMI. Troponin in the ED was elevated. EKG without clear ST segment elevation but questionable ST-T changes - no prior EKG to compare to. Currently, chest pain has essentially resolved. Echo obtained - Mild concentric LVH. No regional motion abnormality noted. LV systolic function is normal. LVEF 50 to 60%. RV is normal in size and function. Aortic valve sclerosis mild, without significant aortic valvular stenosis. Doppler findings do not suggest pulmonary hypertension. Grade 1 diastolic dysfunction. 01/25 s/p Cardiac Cath: 1. Severe RCA stenosis is culprit for non-ST elevation [place] 2. Successful PCI with implantation of a large caliber drug-eluting stent in the RCA 3. Patient has aspirin intolerance and refuses to take aspirin. Therefore, she will be on Brilinta 90 mg p.o. twice daily as a sole antiplatelet agent. She could also be considered for Xarelto 2.5 mg daily as an adjuvant agent because it has indication for ASCVD/[place]. 4. Initiate guideline directed medical therapy for secondary prevention of coronary disease to include; high intensity statin therapy, beta-dave, plus or minus ASHLY inhibitor/ARB. The agents and doses will be determined by her primary clinic office coordinator as will decision regarding Xarelto use. 01/26 Stable overall Medications: Brilinta 90 mg twice daily, metoprolol succinate 25 mg daily, Lipitor 40 mg daily Follow-up with cardiology clinic in 4 to 6 weeks Needs cardiac rehab DM 2, New Diagnosis A1c 9.5 will start Metformin 500mg daily Laboratory Mechanic Helper consulted, instructions given to patient Follow-up closely as an outpatient Discharge Exam General- oriented x 3, not in distress, speaks in sentences with no effort or accessory muscle use Eyes- anicteric Neck- no JVD Lungs- clear breath sounds bilaterally, no rales/wheezes Heart- normal rate, regular rhythm; no murmurs Abdomen- normal bowel sounds, nondistended, soft, nontender Extremities- no pretibial edema, no calf tenderness Neuro- alert, oriented x 3; no gross focal neurologic deficits Skin- warm & dry Updated Medication List Medication Instructions Recorded Confirmed Type calcium carbonate 600 mg-vitamin 1 tab PO [id number] 01/24/23 01/24/23 History D3 10 mcg (400 unit) tablet (Calcium 600 + D(3)) cranberry concentrate-ascorbic 1 cap PO DAILY 01/24/23 01/24/23 History acid 140 mg-100 mg capsule (Cranberry Urinary Comfort) magnesium oxide 400 mg PO DAILY 01/24/23 01/24/23 History turmeric root extract 500 mg tablet 500 mg PO DAILY 01/24/23 01/24/23 History atorvastatin 40 mg tablet 40 mg PO QAM 30 days #30 tabs 01/26/23 [facility]/26/23 Rx Verio test strips) famotidine 10 mg tablet (Acid 10 mg PO QAM 30 days #30 tabs 01/26/23 Rx Director Workers [employer] (famotidine)) lancets 30 gauge ([facility] #100 ea 01/26/23 Rx Safety Lancet) metformin 500 mg tablet,extended 500 mg PO DAILY 30 days #30 tabs 01/26/23 Rx release 24 hr metoprolol succinate 25 mg 25 mg PO QAM 30 days #30 tabs 01/26/23 Rx tablet,extended release 24 hr ticagrelor 90 mg tablet (Brilinta) 90 mg PO BID 30 days #60 tabs 01/26/23 Rx Hospital Stay Data Consultations 01/24/23 17:20 ED Decision to Admit Stat 01/24/23 22:12 Consult Cardiology Routine Procedures Performed Operation Date: 01/25/23 11:30 Actual Procedures p Cineradiography w/Routine Exam - Jcarlos Evans MD, PhD p Cath, Coronaries ONLY (no LV) - Jcarlos Evans MD, PhD Diagnostic Imagining Performed 01/25/23 13:29 CL Cath Imgs for PACS use only Stat 01/26/23 10:35 CT head/brain wo con Stat FINDINGS: No acute intracranial hemorrhage, midline shift, intracranial mass, hydrocephalus, territorial ischemia or abnormal extra-axial collection. Involutional changes with chronic microvascular ischemic disease. The calvarium is intact. The paranasal sinuses, mastoid air cells, and middle ear cavities are clear. IMPRESSION: No acute process. ACT 112: Negative or not required by law. Pending Results Patient Have Any Pending Studies at Discharge: No Discharge Instructions Given to Patient (Per Discharging Provider) PLEASE REFER TO YOUR NEW MEDICATION LIST AND FOLLOW INSTRUCTIONS CAREFULLY. YOUR NEW MEDICATIONS INCLUDE: Brilinta- for prevention of heart attack Metoprolol succinate-for blood pressure and heart rate control Lipitor -for cholesterol lowering Metformin-for diabetes, to be started on January 28, 2023 Please check your blood sugar daily. Present your blood sugar readings to your primary care physician on follow-up. Notify your primary care provider if blood sugar is more than 200 x 3 days. PLEASE CALL YOUR PRIMARY CARE PHYSICIAN OR RETURN TO THE ER IF WITH WORSENING OF SYMPTOMS, INCLUDING Chest pain, shortness of breath, palpitations, dizziness, etc. FOLLOW UP WITH PRIMARY CARE PHYSICIAN OUTLINED ABOVE. Total Time Total Time Spent Total Time Spent (In Minutes): > 30 minutes
[2023-01-26] MEDS ORDERED: TICAGRELOR 90 MG TAB PO SCH (21:00)
[2023-01-27] MEDS ORDERED: METOPROLOL SUCC 25MG EXT REL TAB PO SCH (09:00)
== END 2023-01-26 14:53 | disposition home or self-care (01) | DRG 247 ==
LOC: ED 13:58 → EDINP 17:12 → SUATTDRO 17:12 → 2S 22:12
PROC: CLB.CCO (2023-01-25 11:30)